=== PATIENT | male | born 1930 | race Caucasian/White ===

== ENCOUNTER 2016-06-22 20:56 | Observation (INO) | payer MEDICARE, OTHER ==
[2016-06-22] MEDS ORDERED: ASPIRIN 81 MG TAB.CHEW PO ONE (21:14)
[2016-06-22] MEDS ORDERED: ASPIRIN 81 MG TAB.CHEW ONE (21:15)
--- NOTE | 2016-06-22 21:20 | ERNOTE ---
Chest Pain/Cardiac HPI Chief Complaint: Chest Pain Time Seen by Provider: 06/22/16 21:06 Source: patient, family Exam Limitations: no limitations Immunizations: IMMUNIZATION HX Immunizations Up to Date No History of Influenza Vaccine No Hx Pneumococcal Vaccination Yes Allergies/Adverse Reactions: Allergies No Known Allergies Allergy (Verified 10/22/15 14:57) Home Medications: HOME MEDICATIONS Aspirin [Aspirin Enteric Coated] 81 mg PO DAILY 11/18/13 [Last Taken Unknown] Pentosan Polysulfate Sodium [Elmiron] 100 mg PO BID 11/18/13 [Last Taken Unknown ] Simvastatin [Zocor] 20 mg PO HS 11/18/13 [Last Taken Unknown] Mesalamine [Apriso] 1.5 gm PO DAILY 03/26/14 [Last Taken Unknown] Narrative: Pt states he had onset of sharp left sided chest pain 2 hours [employer], his gave him 81 mg ASA and he normally takes 81 mg daily. Timing: gone now Severity/Quality: moderate Location: shoulder, back, left chest Chest Pain Radiation: neck Activities at Onset: none Modifying Factors - Improves: Present: other Modifying Factors - Worsens: Present: nothing Aspirin Treatment Today: 81 mg x 2 Associated Symptoms: Present: shortness of breath, nausea, weakness Prior Chest Pain/Cardiac Workup: Reports: heart attack - 22 years ago Review of Systems - Review of Systems Constitutional: Present: weakness, fatigue. Absent: recent illness, fever EYE: Present: no symptoms reported ENT: Present: no symptoms reported Respiratory: Present: shortness of breath. Absent: cough, wheezing Cardiology: Present: See HPI, chest pain Gastrointestinal/Abdominal: Present: nausea, other - heartburn Genitourinary: Absent: pain, dysuria Musculoskeletal: Present: back pain, neck pain - x 24 hours Skin: Present: no symptoms reported Psych: Present: emotional problems - stress from - Patient's Past Medical History Patient History - Medical: No pertinent hx Patient History - Cardiac/Respiratory: Coronary Heart Disease, Myocardial Infarction Patient History - Cancer: No Hx of Cancer Patient History - Surgical Procedures: Coronary Bypass Surgery - Social History Living Situations: spouse Smoking Status: Never smoker Alcohol Use: none Drug Use: none Physical Exam - Physical Exam General Appearance: Present: wd/wn, alert, no apparent distress Eye Exam: Normal inspection: bilateral, PERRL: bilateral Ears, Nose, Throat: Present: normal ENT inspection, hearing grossly normal Neck: Present: normal inspection, nontender Respiratory: Present: no respiratory distress, normal breath sounds, no accessory muscle use, chest nontender, lungs clear Cardiovascular/Chest: Present: regular rate, rhythm Gastrointestinal/Abdominal: Present: normal bowel sounds, nontender, nondistended, soft, no organomegaly Back Exam: Present: normal inspection, normal range of motion Extremity Exam: Present: normal inspection, non-tender, no edema, normal range of motion Neurological Exam: Present: alert, oriented, normal mood/affect, no motor/ sensory deficits Skin Exam: Present: normal color, warm/dry Lymphatic Exam: Present: no adenopathy ED Progress - Results and Orders Patient's Lab Results:: I have reviewed the patient's lab results. Results and Orders: Laboratory Tests 06/22/16 06/22/16 06/22/16 21:26 21:26 21:26 WBC 6.0 Hgb 13.1 L Hct 39.9 L Plt Count 197 PT 10.7 INR (Anticoag Therapy) 1.03 PTT ([place]) 27.1 Sodium 140 Potassium 4.4 Chloride 106 Carbon Dioxide 30.2 BUN 17 Creatinine 1.06 Est GFR (Non-Af Amer) 71 D Random Glucose 108 Calcium 9.0 Total Bilirubin 1.9 H AST 17 ALT 22 Alkaline Phosphatase 75 Troponin I Less than 0.017 Total Protein 6.7 Albumin 3.7 - Vital Signs Patient's Vital Signs:: I have reviewed the patient's vital signs. Vital Signs: Vital Signs 06/22/16 06/22/16 21:00 21:11 Temperature 36.8 C Pulse Rate 73 66 Respiratory 18 Rate Blood Pressure 194/87 O2 Sat by Pulse 98 Oximetry - EKG EKG: NSR, nonspecific ST T wave changes - inverted t waves aVL, L ant fascicular block, PVC - X-Ray X-Ray #1 X-Ray: chest Interpretation: Interp. by me X-ray Comments: Scarring bilateral bases L > R chronic, no effusion or infiltrate - Progress/Reassessment Chief Complaint: Chest Pain Departure - Departure Clinical Impression: Chest pain Qualifiers: Chest pain type: other chest pain Qualified Code(s): R07.89 - Other chest pain Disposition: [facility] Condition: Good
[2016-06-22 21:28] LABS: Hematocrit 39.9 % (42.0-52.0); Hemoglobin 13.1 gm/dL (13.5-18.0); Mean Cell Volume 92.1 fl (78-100); Mean Corpuscular Hemoglobin 30.3 pg (27-31); Mean Corpuscular Hgb Conc 32.8 g/dl (32-36); Mean Platelet Volume 9.6 fl (6.0-9.5); Neutrophil # 3.2 K/mm3 (1.3-6.0); Neutrophil % 54.2 % (42-75.0); Platelet Count 197 K/mm3 (150-450); Red Blood Count 4.33 M/mm3 (4.7-6.0); Red Cell Distribution Width 11.7 % (11.5-14.0)
[2016-06-22 21:38] LABS: Prothrombin Time (Patient) 10.7 Seconds (9.4-11.4)
[2016-06-22 21:40] LABS: INR 1.03 INR (0.90-1.10); Partial Thrombolplastin Time 27.1 Seconds (24-32)
[2016-06-22 21:44] LABS: ALT 22 U/L (19-67); AST 17 U/L (0-48); Albumin * 3.7 gm/dl (3.4-5.0); Alkaline Phosphatase * 75 U/L (50-170); Anion Gap 8.2 mmol/L (6.8-13.8); Bilirubin, Total 1.9 mg/dL (0.0-1.1); Blood Urea Nitrogen 17 mg/dL (6-23); Ca. Corrected For Albumin 8.9 mg/dL (8.4-10.2); Carbon Dioxide 30.2 mmol/L (24-32.6); Chloride 106 mmol/L (97-106); Glucose * 108 mg/dL (70-110); Potassium 4.4 mmol/L (3.4-4.6); Sodium 140 mmol/L (132-142); Total Protein 6.7 gm/dL (6.2-8.2); Troponin I Less than 0.017 ng/ml (0.00-0.10)
--- NOTE | 2016-06-23 00:47 | HP ---
<Indira Mcintyre - Last Filed: 06/23/16 02:49> Chief Complaint - Chief Complaint Date of Service: 06/23/16 Time of Service: 00:47 Chief Complaint: "Chest Pain". Source- Pt; reliable, ER provider report. History of Present Illness: Mr. Doyle is a 85 yr-old WM pt of Dr. Adriana Mendes with a PMH involving: CAD, Carotis stenosis, Inguinal Hernia, HLD, & Osteosthritis. Pt came in to the ER with complaints of chest pain. He reports that the C.P begun 24 hours prior to presentation to the ER, but since it never went away, he decided that he needed to be checked out. The pain was located in the midsternum area and it radiated to the back. He denies the associated symptoms of SOB, Radiation to the arm, jaw or neck, diaphoresis n & v. During evaluation at the ED, his EKG and Tropinin did not show any signs of WI/ACS. The CXR did not have any acute findings. At the time of physical examination, he denies having any C.P. He will be admitted under observation status for remote telemetry monitoring. - Patient's Past Medical History Patient History - Medical: No pertinent hx Patient History - Cardiac/Respiratory: Coronary Heart Disease, Myocardial Infarction Patient History - Cancer: No Hx of Cancer Patient History - Surgical Procedures: Coronary Bypass Surgery, Other - Family History Father Family History - Medical: Family History - Cardiac/Respiratory: No pertinent hx Family History - Cancer: Lung Mother Family History - Medical: , No pertinent hx Family History - Cardiac/Respiratory: No pertinent hx Family History - Cancer: No pertinent family hx - Social History Living Situations: spouse Smoking Status: Never smoker Have you smoked in the past 12 months: No Do you dip or chew tobacco: No Alcohol Use: none Drug Use: none - Immunizations Immunizations Up to Date: Yes Hx Pneumococcal Vaccination: Yes History of Influenza Vaccine: Yes Review Of Systems (GEN) - Review of Systems Generalized/Overall Review: Absent: Weakness, Chills, Fever EENTM: Absent: Eye Pain, Blurred Vision, Double Vision, Nose Congestion, Throat Swelling Respiratory: Absent: Cough, Shortness of Breath, Wheezing Cardiac: Present: Chest Pain. Absent: Edema, Palpitations, Syncope Abdominal: Absent: Nausea, Vomiting, Hematemesis, Abdominal Pain Genitourinary: Absent: Burning, Itching, Frequency, Hematuria Musculoskeletal: Present: Back Pain. Absent: Joint Pain, Neck Pain Neurological: Absent: Headache, Anxiety, Depressed, Weakness Skin: Absent: Dryness, Lesions, Lumps Endocrine: Absent: Intolerance to Cold, Intolerance to Heat, Increased Hunger Misc: All systems neg except as marked Allergies/Adverse Reactions: Allergies Allergy/AdvReac Type Severity Reaction Status Date / Time No Known Allergies Allergy Verified 06/23/16 00:13 Home Medications: HOME MEDICATIONS Aspirin [Aspirin Enteric Coated] 81 mg PO DAILY 11/18/13 [Last Taken Unknown] Pentosan Polysulfate Sodium [Elmiron] 100 mg PO BID 11/18/13 [Last Taken Unknown ] Simvastatin [Zocor] 20 mg PO HS 11/18/13 [Last Taken Unknown] Mesalamine [Apriso] 1.5 gm PO DAILY 03/26/14 [Last Taken Unknown] Exam - Exam Vital Signs: Vital Signs - Last Taken Temp 37.0 C 06/22/16 23:34 Pulse 66 06/22/16 23:34 Resp 16 06/22/16 23:34 BP 170/79 06/22/16 23:34 Pulse Ox 99 06/22/16 23:34 Constitutional: Present: Alert, Oriented x3, No distress ENT Exam: Present: normal ENT inspection, hearing grossly normal Eye Exam: bilateral eye: normal inspection, PERRL Neck: Present: full range of motion, supple, normal inspection Back Exam: Present: no CVA tenderness, no vertebral tenderness Breasts: Present: Exam deferred Respiratory: Present: lungs clear, no accessory muscle use, No wheezing Cardiovascular/Chest: Present: regular rate, rhythm, no edema, no murmur Abdomen: Present: Normal bowel sounds, soft, nontender /Rectal: Present: Exam deferred Extremity: Present: non-tender, normal inspection, no pedal edema Skin Exam: Present: warm/dry, no cyanosis Lymphatic: Present: no adenopathy Neurologic: Present: no motor/sensory deficits, oriented x 3, dizzy/light- headedness Appearance: Present: appropriate appearance, appropriate insight Eye contact: Present: cooperative, good eye contact, normal speech Thoughts: Present: normal thought pattern, no apparent hallucination Diagnostic Studies: Laboratory Results WBC 6.0 K/mm3 (4.0-10.5) 06/22/16 21: RBC 4.33 M/mm3 (4.7-6.0) L 06/22/16 21: Hgb 13.1 gm/dL (13.5-18.0) L 06/22/16 21: Hct 39.9 % (42.0-52.0) L 06/22/16 21: MCV 92.1 fl (78-100) 06/22/16 21: MCH 30.3 pg (27-31) 06/22/16 21: MCHC 32.8 g/dl (32-36) 06/22/16 21: RDW 11.7 % (11.5-14.0) 06/22/16: Plt Count 197 K/mm3 (150-450) 06/22/16 21: MPV 9.6 fl (6.0-9.5) H 06/22/16 21: Immature Gran % (Auto) 0.20 % (0.001-0.429) 06/22/16: Immature Gran # (Auto) 0.01 K/mm3 (0.000-0.0310) 06/22/16 21: Neutrophils % 54.2 % (42-75.0) 06/22/16 21: Lymphocytes % 31.6 % (20-51) 06/22/16 21: Monocytes % 10.4 % (0.0-9) H 06/22/16 21: Eosinophils % 2.8 % (0.0-3.0) 06/22/16 21: Basophils % 0.8 % (0.0-1.0) 06/22/16 21: Nucleated RBC % 0.0 k/mm3 (0-1) 06/22/16 21: Neutrophils # 3.2 K/mm3 (1.3-6.0) 06/22/16 21: Lymphocytes # 1.9 k/mm3 (1.5-3.5) 06/22/16 21: Monocytes # 0.6 k/mm3 (0.0-1.0) 06/22/16 21: Eosinophils # 0.2 k/mm3 (0.0-0.7) 06/22/16: Absolute Basophils 0.1 k/mm3 (0.0-0.1) 06/22/16 21: PT 10.7 Seconds (9.4-11.4) 06/22/16 21: INR (Anticoag Therapy) 1.03 INR (0.90-1.10) 06/22/16 21: PTT ([place]) 27.1 Seconds (24-32) 06/22/16 21: Sodium 140 mmol/L (132-142) 06/22/16 21: Plasma Sodium 140 mmol/L (130-142) 06/22/16 21: Potassium 4.4 mmol/L (3.4-4.6) 06/22/16: Chloride 106 mmol/L (97-106) 06/22/16: Carbon Dioxide 30.2 mmol/L (24-32.6) 06/22/16: Anion Gap 8.2 mmol/L (6.8-13.8) 06/22/16: BUN 17 mg/dL (6-23) 06/22/16: Creatinine 1.06 mg/dL (0.4-1.4) 06/22/16: Est GFR (Non-Af Amer) 71 mL/min (60-130) D 06/22/16: BUN/Creatinine Ratio 16.0 (9.0-21.6) 06/22/16 21: Random Glucose 108 mg/dL (70-110) 06/22/16: Calcium 9.0 mg/dL (7.9-10.9) 06/22/16: Calcium Adj for Albumin 8.9 mg/dL (8.4-10.2) 06/22/16: Total Bilirubin 1.9 mg/dL (0.0-1.1) H 06/22/16: AST 17 U/L (0-48) 06/22/16 21: ALT 22 U/L (19-67) 06/22/16 21: Alkaline Phosphatase 75 U/L (50-170) 06/22/16 21: Troponin I Less than 0.017 ng/ml (0.00-0.10) 06/22/16: Total Protein 6.7 gm/dL (6.2-8.2) 06/22/16 21: Albumin 3.7 gm/dl (3.4-5.0) 06/22/16 21:26 Assessment/Plan - Assessment/Plan (1) Chest pain, rule out acute myocardial infarction Assessment: The first EKG and troponin was negative for WI/ACS- Will place on remote telemtry monitoring , repeat EKG & serial troponins. If all comes back negative , will d/c in am. Problem: Acute <Garret Shepherd - Last Filed: 06/23/16 11:07> Immunizations: IMMUNIZATION HX Immunizations Up to Date Yes History of Influenza Vaccine Yes Hx Pneumococcal Vaccination Yes Exam - Exam Vital Signs: Vital Signs - Last Taken Temp 36.6 C 06/23/16 06:31 Pulse 62 06/23/16 06:31 Resp 16 06/23/16 06:31 BP 143/61 06/23/16 06:31 Pulse Ox 95 06/23/16 06:31 Diagnostic Studies: Laboratory Results WBC 6.0 K/mm3 (4.0-10.5) 06/22/16 21: RBC 4.33 M/mm3 (4.7-6.0) L 06/22/16 21: Hgb 13.1 gm/dL (13.5-18.0) L 06/22/16 21: Hct 39.9 % (42.0-52.0) L 06/22/16 21: MCV 92.1 fl (78-100) 06/22/16 21: MCH 30.3 pg (27-31) 06/22/16 21: MCHC 32.8 g/dl (32-36) 06/22/16 21: RDW 11.7 % (11.5-14.0) 06/22/16 21: Plt Count 197 K/mm3 (150-450) 06/22/16 21: MPV 9.6 fl (6.0-9.5) H 06/22/16 21: Immature Gran % (Auto) 0.20 % (0.001-0.429) 06/22/16 21: Immature Gran # (Auto) 0.01 K/mm3 (0.000-0.0310) 06/22/16 21: Neutrophils % 54.2 % (42-75.0) 06/22/16 21: Lymphocytes % 31.6 % (20-51) 06/22/16 21: Monocytes % 10.4 % (0.0-9) H 06/22/16 21: Eosinophils % 2.8 % (0.0-3.0) 06/22/16 21: Basophils % 0.8 % (0.0-1.0) 06/22/16 21: Nucleated RBC % 0.0 k/mm3 (0-1) 06/22/16 21: Neutrophils # 3.2 K/mm3 (1.3-6.0) 06/22/16 21: Lymphocytes # 1.9 k/mm3 (1.5-3.5) 06/22/16: Monocytes # 0.6 k/mm3 (0.0-1.0) 06/22/16: Eosinophils # 0.2 k/mm3 (0.0-0.7) 06/22/16: Absolute Basophils 0.1 k/mm3 (0.0-0.1) 06/22/16 21: PT 10.7 Seconds (9.4-11.4) 06/22/16 21: INR (Anticoag Therapy) 1.03 INR (0.90-1.10) 06/22/16 21: PTT ([place]) 27.1 Seconds (24-32) 06/22/16 21: Sodium 140 mmol/L (132-142) 06/22/16 21: Plasma Sodium 140 mmol/L (130-142) 06/22/16 21: Potassium 4.4 mmol/L (3.4-4.6) 06/22/16 21: Chloride 106 mmol/L (97-106) 06/22/16 21: Carbon Dioxide 30.2 mmol/L (24-32.6) 06/22/16 21: Anion Gap 8.2 mmol/L (6.8-13.8) 06/22/16 21: BUN 17 mg/dL (6-23) 06/22/16 21: Creatinine 1.06 mg/dL (0.4-1.4) 06/22/16 21: Est GFR (Non-Af Amer) 71 mL/min (60-130) D 06/22/16 21: BUN/Creatinine Ratio 16.0 (9.0-21.6) 06/22/16 21: Random Glucose 108 mg/dL (70-110) 06/22/16 21: Calcium 9.0 mg/dL (7.9-10.9) 06/22/16 21: Calcium Adj for Albumin 8.9 mg/dL (8.4-10.2) 06/22/16: Total Bilirubin 1.9 mg/dL (0.0-1.1) H 06/22/16 21: AST 17 U/L (0-48) 06/22/16: ALT 22 U/L (19-67) 06/22/16: Alkaline Phosphatase 75 U/L (50-170) 06/22/16 21: Troponin I 0.023 ng/ml (0.00-0.10) 06/23/16 03:03 Total Protein 6.7 gm/dL (6.2-8.2) 06/22/16 21: Albumin 3.7 gm/dl (3.4-5.0) 06/22/16 21:26 Assessment/Plan - Narrative Narrative: This is atypical chest pain. Sharp. Worse when he takes a deep breath. Left anterior chest, left shoulder girdle, left posterolateral neck and left upper back. Today, it is mostly gone, except for in his neck. NOS except fatigue. I personally directed all of [facility]'s care for this patient.
--- NOTE | 2016-06-23 06:27 | DS ---
<Indira Mcintyre - Last Filed: 06/23/16 06:36> (1) Chest pain, rule out acute myocardial infarction Problem: Ruled-out Description of Stay: Mr. Doyle is a 85 yr-old WM pt of Dr. Adriana Mendes with a PMH involving: CAD, Carotid stenosis, Inguinal Hernia, HLD, & Osteosthritis. Pt came in to the ER with complaints of chest pain. He had reported that the C.P begun 24 hours prior to presentation to the ER, but since it never went away, he decided that he needed to be checked out. The pain was located in the midsternum area and it radiated to the back. He denied the associated symptoms of SOB, Radiation to the arm, jaw or neck, diaphoresis n & v. During evaluation at the ED, his EKG and Troponin did not show any signs of IN/ACS. The CXR did not have any acute findings. He was admitted under observation status for remote telemetry monitoring and had repeat EKG & Troponin. The cardiac work-up turned out to be negative for IN/ACS. He did not have any C.P episodes during the overnight stay. He is in a stable condition to be discharged home. Procedures Performed: none Discharge Disposition: Home self care Disposition: Home self-care Condition: Good Discharge Diet: General/regular food Referrals: Adriana Mendes MD [Primary Care Provider] - Problem Oriented Discharge Instructions to Patient/Family: Chest Pain Observation Additional Patient Instructions (free text): Follow- up with your PCP next week. We will call you with your appointment time. Complete Home Medications List: Complete Home Medication List: Aspirin [Aspirin Enteric Coated] 81 mg PO DAILY 11/18/13 Pentosan Polysulfate Sodium [Elmiron] 100 mg PO BID 11/18/13 Simvastatin [Zocor] 20 mg PO HS 11/18/13 Mesalamine [Apriso] 1.5 gm PO DAILY 03/26/14 <Garret Shepherd - Last Filed: 06/23/16 11:13> (1) Chest pain Problem: Acute Qualifiers: Chest pain type: other chest pain Qualified Code(s): R07.89 - Other chest pain; R07.8 - Other chest pain Procedures Performed: none Discharge Disposition: Home self care
[2016-06-23 06:32] VITALS: BP 143/61
[2016-06-23] MEDS ORDERED: FLU VACC QS2016-17 36MOS UP/PF 60 MCG/0.5 ML DISP.SYRIN IM ONE ×2 (07:20→09:00)
[2016-06-23] MEDS ORDERED: ASPIRIN 81 MG TABLET.DR PO SCH (09:00)
[2016-06-23] MEDS ORDERED: MESALAMINE 500 MG CAPSULE PO SCH (09:00)
[2016-06-23] MEDS ORDERED: SIMVASTATIN 20 MG TABLET PO SCH (21:00)
== END 2016-06-23 07:30 | disposition home or self-care (01) ==
LOC: ER 20:56 → MS 22:46
PROVIDERS: ADMIT Nurse Practitioner; ATTEND Allergy & Immunology
DX: R07.89 Other chest pain (principal); I25.10 Atherosclerotic heart disease of native coronary artery without angina pectoris; Z95.1 Presence of aortocoronary bypass graft; Z23 Encounter for immunization
CPT/HCPCS: 36415; 71010; 80053; 84484; 85025; 85610; 85730; 90686; 93005; 99284; G0378